=== PATIENT | male | born 1950 | race Caucasian/White ===

== ENCOUNTER → 2016-12-03 | Outpatient (CLI) | payer OTHER ==
[2014-12-31 18:32] VITALS: BP 153/69
[~2016-12-03] MED LIST: ASPI-612 PO; CETI10TA22 PO; HYDR-971 PO; HYDR1TAB10 PO; IV NORMAL SALINE 250ML 250 ML ONE; MIDAZOLAM HCL 2 MG/2 ML VIAL. ONE; ONDA8TAB9 PO; OSEL75CA PO; fentaNYL PF 100 MCG/2 ML VIAL ONE
== END | disposition home or self-care (01) ==
LOC: SURG 12:28
PROVIDERS: ATTEND Anesthesiology Pain Medicine
DX: M47.816 Spondylosis without myelopathy or radiculopathy, lumbar region (principal); I10 Essential (primary) hypertension; E78.5 Hyperlipidemia, unspecified; M19.91 Primary osteoarthritis, unspecified site; K21.9 Gastro-esophageal reflux disease without esophagitis; Z72.89 Other problems related to lifestyle; Z98.890 Other specified postprocedural states
CPT/HCPCS: 64635; 64636; J2250; J3010; J7050

== ENCOUNTER → 2016-12-17 | Outpatient (CLI) | payer OTHER ==
[2014-12-31 18:32] VITALS: BP 153/69
[~2016-12-17] MED LIST changes: +BUPIVACAINE MPF 0.5% 30 ML VIAL. ONE; +LIDOCAINE 1% PF 30 ML VIAL. ONE; -MIDAZOLAM HCL 2 MG/2 ML VIAL. ONE; +MIDAZOLAM HCL PF 2 MG/2 ML VIAL. ONE; -fentaNYL PF 100 MCG/2 ML VIAL ONE; +methylPREDNISolone ACETATE 40 MG/ML VIAL. ONE
== END | disposition home or self-care (01) ==
LOC: SURG 13:07
PROVIDERS: ATTEND Anesthesiology Pain Medicine
DX: M47.816 Spondylosis without myelopathy or radiculopathy, lumbar region (principal); I10 Essential (primary) hypertension; K21.9 Gastro-esophageal reflux disease without esophagitis; E78.5 Hyperlipidemia, unspecified; Z72.89 Other problems related to lifestyle; M19.90 Unspecified osteoarthritis, unspecified site
CPT/HCPCS: 64635; 64636; J1030; J2001; J2250; J3010; J3490; J7050

== ENCOUNTER → 2017-11-04 | Outpatient (CLI) | payer MEDICARE, OTHER ==
[2014-12-31 18:32] VITALS: BP 153/69
[~2017-11-04] MED LIST changes: -IV NORMAL SALINE 250ML 250 ML ONE; -MIDAZOLAM HCL PF 2 MG/2 ML VIAL. ONE; -methylPREDNISolone ACETATE 40 MG/ML VIAL. ONE
== END | disposition home or self-care (01) ==
LOC: SURG 13:18
PROVIDERS: ATTEND Anesthesiology Pain Medicine
DX: M47.816 Spondylosis without myelopathy or radiculopathy, lumbar region (principal); G89.29 Other chronic pain; Z72.89 Other problems related to lifestyle; I10 Essential (primary) hypertension; M19.90 Unspecified osteoarthritis, unspecified site; Z98.41 Cataract extraction status, right eye; Z96.1 Presence of intraocular lens; Z98.890 Other specified postprocedural states; Z95.1 Presence of aortocoronary bypass graft; Z79.82 Long term (current) use of aspirin; Z79.899 Other long term (current) drug therapy
CPT/HCPCS: 64493; 64494; J2001; J3490

== ENCOUNTER → 2018-01-06 | Day surgery (SDC) | payer MEDICARE, OTHER ==
[~2018-01-06] MED LIST changes: +ASPI81TA50 PO; +BIOT25006 PO; +CHOL10003 PO; +CYCL1DRO EACHEYE; +DICL100G18 TP; +DOXY100C2 PO; +EZET10TA18 PO; +GABA-586 PO; +LIPITOR80 MG PO; +MAGN1TAB PO; +MELA3TAB2 PO; +METO25TA4 PO; +MIDAZOLAM HCL PF 2 MG/2 ML VIAL. IV ONE; +MIDAZOLAM HCL PF 2 MG/2 ML VIAL. ONE; +MULT1TAB52 PO; +NITR0.4T SL; +NITR0.4T22 SL; +PANT40TA3 PO; +RANI150T21 PO; +TAMS0.4C97 PO; +methylPREDNISolone ACETATE 40 MG/ML VIAL. ONE
[2018-01-06 13:20] VITALS: BP 145/78
== END | disposition home or self-care (01) ==
LOC: SURG 09:58
PROVIDERS: ATTEND Anesthesiology Pain Medicine
DX: M47.816 Spondylosis without myelopathy or radiculopathy, lumbar region (principal); I10 Essential (primary) hypertension; I25.10 Atherosclerotic heart disease of native coronary artery without angina pectoris; Z95.1 Presence of aortocoronary bypass graft; Z79.899 Other long term (current) drug therapy; Z79.82 Long term (current) use of aspirin; Z72.89 Other problems related to lifestyle; Z98.890 Other specified postprocedural states; Z91.018 Allergy to other foods; Z98.49 Cataract extraction status, unspecified eye; Z96.1 Presence of intraocular lens
CPT/HCPCS: 64635; 64636; 99152; J1030; J2001; J2250; J3010; J3490

== ENCOUNTER → 2018-01-20 | Day surgery (SDC) | payer MEDICARE, OTHER ==
[~2018-01-20] MED LIST changes: -MIDAZOLAM HCL PF 2 MG/2 ML VIAL. IV ONE; +methylPREDNISolone ACETATE 80 MG/ML VIAL. ONE
[2018-01-20 13:34] VITALS: BP 127/80
== END | disposition home or self-care (01) ==
LOC: SURG 11:59
PROVIDERS: ATTEND Anesthesiology Pain Medicine
DX: M47.816 Spondylosis without myelopathy or radiculopathy, lumbar region (principal); I10 Essential (primary) hypertension; I25.10 Atherosclerotic heart disease of native coronary artery without angina pectoris; Z87.19 Personal history of other diseases of the digestive system; Z79.82 Long term (current) use of aspirin; Z79.899 Other long term (current) drug therapy; Z98.49 Cataract extraction status, unspecified eye; Z98.890 Other specified postprocedural states; Z95.1 Presence of aortocoronary bypass graft
CPT/HCPCS: 64635; 64636; 99152; J1030; J1040; J2001; J2250; J3010; J3490

== ENCOUNTER 2021-01-28 09:47 | Emergency (ER) | payer MEDICARE, OTHER ==
[~2021-01-28] VITALS: Ht 172.7 cm; Wt 68.2 kg
[~2021-01-28 09:47] MED LIST changes: -ASPI-612 PO; +ASPI-889 PO; -BUPIVACAINE MPF 0.5% 30 ML VIAL. ONE; -CETI10TA22 PO; +CETI10TA74 PO; -DOXY100C2 PO; +DOXY100C3 PO; -EZET10TA18 PO; +EZET10TA20 PO; +HYDR-3165 PO; -HYDR-971 PO; -LIDOCAINE 1% PF 30 ML VIAL. ONE; -MELA3TAB2 PO; +MELA3TAB4 PO; -MIDAZOLAM HCL PF 2 MG/2 ML VIAL. ONE; +MULT-445 PO; -MULT1TAB52 PO; -NITR0.4T SL; +NITR0.4T24 SL; +RANI-376 PO; -RANI150T21 PO; -methylPREDNISolone ACETATE 40 MG/ML VIAL. ONE; -methylPREDNISolone ACETATE 80 MG/ML VIAL. ONE
[2021-01-28 10:02] VITALS: BP 151/86
[2021-01-28] MEDS ORDERED: DIPH,PERTUSS(ACELL),TET VAC/PF 0.5 ML SYRINGE. VAX IM ONE (10:15)
--- NOTE | 2021-01-28 10:20 | PHYS DOC ---
Past History Past Medical History: Hypertension Past Surgical History: Other Additional Past Surgical Histo: R cataract, CABG X4, colectomy, carpal tunnel, Alcohol Use: Occasionally Drug Use: None General Adult EDM: Chief Complaint: LACERATION/AVULSION HPI: HPI: Patient is a 70-year-old male who presents to the emergency department following a head injury. Patient reports he fell off the treadmill this morning and hit his head. He denies loss of consciousness or blood thinner use but states he is on a daily aspirin. Patient is unsure when his last tetanus shot was. Patient reports a laceration to the back of his scalp. He denies nausea, vomiting, vision changes, balance problems, neck pain, back pain. Review of Systems: Review of Systems: Eyes: See HPI HENT: See HPI GI: See HPI Musculoskeletal: See HPI Integument: See HPI Neurologic: See HPI Allergies: Allergies: Allergies Coded Allergies Type Severity Reaction Last Updated Verified No Known Drug Allergies 01/06/18 No Physical Exam: PE: Constitutional: Well developed, well nourished, no acute distress, non-toxic appearance. [] HENT: Normocephalic, bilateral external ears normal, oropharynx moist, no oral exudates, nose normal, 5 cm abrasion noted to left posterior scalp, no active bleeding, no palpable skull fractures. [] Eyes: PERRL, EOMI, conjunctiva normal, no discharge. [] Neck: Normal range of motion, no bony spinal tenderness, supple, no stridor. [] Cardiovascular: Normal peripheral perfusion Lungs & Thorax: Normal work of breathing, no tachypnea Abdomen: Soft and flat Skin: Warm, dry, no erythema, no rash. [] Back: No bony spinal tenderness, normal range of motion Extremities: No tenderness, no cyanosis, no clubbing, ROM intact, no edema. [] Neurologic: Alert and oriented X 3, normal motor function, normal sensory function, no focal deficits noted. [] Psychologic: Affect normal, judgement normal, mood normal. [] Current Patient Data: Vital Signs: Vital Signs Date Time Temp Pulse Resp B/P (MAP) Pulse Ox O2 Delivery O2 Flow Rate FiO2 01/28/21 10:02 98.3 65 18 151/86 (107) 100 Room Air EKG: EKG: [] Radiology/Procedures: Radiology/Procedures: []PROCEDURE: CT HEAD AND CERVICAL SPINE WO CT HEAD AND C-SPINE WO Date: 01/28/2021 10:20 AM Clinical Indication: FALL TODAY, LAC ON POSTERIOR LEFT OF HEAD. Pain Comparison: None. Technique: 5 mm axial tomographic images were obtained of the head without contrast. These were viewed on brain and bone windows. CT imaging of the cervical spine was performed without contrast. Coronal and sagittal reformatted images were performed. One or more of the following dose reduction techniques were utilized: Automated exposure control (AEC), Adjustment of mA and/or kV according to patient size, Use of iterative reconstruction technique such as ASiR, CT scan done according to ALARA and image gently/image wisely HEAD FINDINGS: The brain parenchyma is normal in attenuation. No intra- or extra-axial mass or fluid collection. No acute hemorrhage. The ventricles are normal in size, shape, and morphology. The baird-white matter junction is normal. The basilar cisterns are patent. The visualized paranasal sinuses are normal. The visualized portions of the orbits and globes are normal. The mastoid air cells are clear. No aggressive osseous lesion or fracture. CERVICAL SPINE FINDINGS: Straightening of the cervical lordosis. No acute fracture. No aggressive lytic or blastic osseous lesion. Mild multilevel degenerative disc height lung, moderate at C5-6. No high-grade spinal canal stenosis or neural foraminal narrowing. The thyroid gland is normal. No cervical lymphadenopathy. The visualized aerodigestive tract is unremarkable. The visualized lung apices are clear. IMPRESSION: 1. No acute intracranial process. 2. No acute osseous abnormality of the cervical spine. Electronically signed by: Faina Boo MD (01/28/2021 10:46 AM) [facility] DICTATED AND SIGNED BY: FAINA BOO MD DATE: 01/28/21 1043 CC: EMERGENCY,DEPARTMENT; GARY RUSSELL APRN; OLIVER CASH MD ~MTH0 0 Heart Score: C/O Chest Pain: N/A Risk Factors: Risk Factors: DM, Current or recent (<one month) smoker, HTN, HLP, family h istory of CAD, obesity. Risk Scores: Score 0 - 3: 2.5% MACE over next 6 weeks - Discharge Home Score 4 - 6: 20.3% MACE over next 6 weeks - Admit for Clinical Observation Score 7 - 10: 72.7% MACE over next 6 weeks - Early Invasive Strategies Course & Med Decision Making: Course & Med Decision Making Pertinent Labs and Imaging studies reviewed. (See chart for details) Patient presents to the emergency department for a laceration to the back of his scalp after falling off of a treadmill. The [place] CT results show that a CT is necessary as he is older than [address]. [address] of his head was performed that showed no acute findings. He was unsure of his last tetanus shot so this was updated in the emergency department. The laceration/abrasion was cleansed in the ER. It is a superficial abrasion and does not require sutures, there was an area of the abrasion less than 0.5 cm that was not well approximated. This was repaired with Dermabond. Patient tolerated procedure. A dressing was placed. Patient advised to follow-up with his primary care provider. Advised that he can take Tylenol and/or ibuprofen for his pain. I discussed with patient all findings and diagnostic testing as well as the need to follow-up with PCP for further evaluation and treatment or return to the ER if any new or worsening symptoms. Strict return precautions were also discussed at length. Patient voiced understanding and agreement with the plan. Patient is hemodynamically stable at the time of disposition. Dragon Disclaimer: Dragon Disclaimer: This electronic medical record was generated, in whole or in part, using a voice recognition dictation system. Departure Departure: Impression: Primary Impression: Head injury Qualified Codes: S09.90XA - Unspecified injury of head, initial encounter Disposition: HOME / SELF CARE / HOMELESS Condition: GOOD Referrals: OLIVER CASH MD (PCP) Patient Instructions: Head Injury, Adult, Laceration Care, Adult Additional Instructions: You were seen in the emergency department today for a head injury and a laceration to your scalp. A CT scan was performed of your head and neck that showed no acute findings. Your tetanus was updated in the emergency department today. Your scalp was cleansed and the laceration is actually an abrasion that does not require laceration repair with sutures but a small amount of skin glue was used to approximate a small area of the wound. Do not submerge your head in water for 48 hours. Avoid picking at skin glue. Please keep your wound clean and dry. Monitor for any signs of infection such as redness, warmth, swelling or drainage. You can take Tylenol/ibuprofen for your pain. Follow-up with your primary care provider tomorrow regarding your ER visit. Please return to the e mergency department if you develop worsening of your pain, intractable nausea or vomiting, balance issues, vision changes, or any signs of infection surrounding your abrasion. EMERGENCY DEPARTMENT GENERAL DISCHARGE INSTRUCTIONS Thank you for coming to [facility] (ED) today and trusting us with you care. We trust that you had a positivie experience in our Emergency Department. If you wish to speak to the department management, you may call the director at [phone]. YOUR FOLLOW UP INSTRUCTIONS ARE FOLLOWS: 1. Do you have a private Doctor? If you do not have a private doctor, please ask for a resource list of physicians or clinics that may be able to assist you with follow up care. 2. The Emergency Physician has interpreted your x-rays. The X-Ray specialist will also review them. If there is a change in the findings, you will be notified in 48 hours when at all possible. 3. A lab test or culture has been done, your results will be reviewed and you will be notified if you need a change in treatment. ADDITIONAL INSTRUCTIONS AND INFORMATION: 1. Your care today has been supervised by a physician who is specially trained in emergency care. Many problems require more than one evaluation for a complete diagnosis and treatment. We recommend that you schedule your follow up appointment as recommended to ensure complete treatment of you illness or injury. If you are unable to obtain follow up care and continue to have a problem, or if your condition worsens, we recommend that you return to the ED. 2. We are not able to safely determine your condition over the phone nor are we able to give sound medical advice over the phone. For these safety reasons, if you call for medical advice we will ask you to come to the ED for further evaluation. 3. If you have any questions regarding these discharge instructions please call the ED at [phone]. SAFETY INFORMATION: In the interest of safety, wellness, and injury prevention; we encourage you to wear your sealbelt, if you smoke; quite smoking, and we encourage family to use a protective helmet for bicycling and other sporting events that present an increased risk for head injury. IF YOUR SYMPTOMS WORSEN OR NEW SYMPTOMS DEVELOP, OR YOU HAVE CONCERNS ABOUT YOUR CONDITION; OR IF YOUR CONDITION WORSENS WHILE YOU ARE WAITING FOR YOUR FOLLOW UP APPOINTMENT; EITHER CONTACT YOUR PRIMARY CARE DOCTOR, THE PHYSICIAN WHOSE NAME AND NUMBER YOU WERE GIVEN, OR RETURN TO THE ED IMMEDIATELY. GARY RUSSELL PHARMACY INFORMATICS MANAGER Jan 28, 2021 10:20
--- NOTE | 2021-01-28 10:48 | RAD ---
CT HEAD AND C-SPINE WO Date: 01/28/2021 10:20 AM Clinical Indication: FALL TODAY, LAC ON POSTERIOR LEFT OF HEAD. Pain Comparison: None. Technique: 5 mm axial tomographic images were obtained of the head without contrast. These were view ed on brain and bone windows. CT imaging of the cervical spine was performed without contrast. Coron al and sagittal reformatted images were performed. One or more of the following dose reduction techni ques were utilized: Automated exposure control (AEC), Adjustment of mA and/or kV according to patient size, Use of iterative reconstruction technique such as ASiR, CT scan done according to ALARA and im age gently/image wisely HEAD FINDINGS: The brain parenchyma is normal in attenuation. No intra- or extra-axial mass or fluid collection. No acute hemorrhage. The ventricles are normal in size, shape, and morphology. The biard-white matter pilar ction is normal. The basilar cisterns are patent. The visualized paranasal sinuses are normal. The visualized portions of the orbits and globes are no rmal. The mastoid air cells are clear. No aggressive osseous lesion or fracture. CERVICAL SPINE FINDINGS: Straightening of the cervical lordosis. No acute fracture. No aggressive lytic or blastic osseous les ion. Mild multilevel degenerative disc height lung, moderate at C5-6. No high-grade spinal canal stenosis or neural foraminal narrowing. The thyroid gland is normal. No cervical lymphadenopathy. The visualized aerodigestive tract is unrem arkable. The visualized lung apices are clear. IMPRESSION: 1. No acute intracranial process. 2. No acute osseous abnormality of the cervical spine. Electronically signed by: Peterson Saxena MD (01/28/2021 10:46 AM) [facility]
== END 2021-01-28 12:04 | disposition home or self-care (01) ==
LOC: ER 09:47
DX: S00.01XA Abrasion of scalp, initial encounter (principal); I10 Essential (primary) hypertension; W17.89XA Other fall from one level to another, initial encounter; Y93.89 Activity, other specified; Y92.89 Other specified places as the place of occurrence of the external cause; Y99.8 Other external cause status
CPT/HCPCS: 70450; 72125; 90471; 90715; 99285-25